=== PATIENT | female | born 2000 | race Two or more races ===

== ENCOUNTER 2022-10-02 23:24 | Emergency (ER) | payer OTHER ==
[~2022-10-02] VITALS: Ht 172.7 cm; Wt 61.2 kg
[2022-10-03] MEDS ORDERED: ZYRTEC10 MG PO (02:42)
[2022-10-03] MEDS ORDERED: ACETAMINOPHEN500 M1 PO (02:42)
[2022-10-03] MEDS ORDERED: INTESTINEX680 M1 PO (02:42)
[2022-10-03] MEDS ORDERED: PEPCID AC20 MG PO (02:42)
[2022-10-03] MEDS ORDERED: OSEL75CA PO (02:42)
[2022-10-03] MEDS ORDERED: ACETAMINOPHEN500 M1 (02:45)
== END 2022-10-03 02:58 | disposition home or self-care (01) ==
LOC: ER 23:24
DX: B34.9 Viral infection, unspecified (principal); Z20.822 Contact with and (suspected) exposure to COVID-19

== ENCOUNTER 2022-10-03 19:18 | Emergency (ER) | payer OTHER ==
[~2022-10-03] VITALS: Ht 172.7 cm; Wt 61.2 kg
[~2022-10-03 19:18] MED LIST: ACETAMINOPHEN500 M1; ACETAMINOPHEN500 M1 PO; INTESTINEX680 M1 PO; OSEL75CA PO; PEPCID AC20 MG PO; ZYRTEC10 MG PO
== END 2022-10-03 21:35 | disposition home or self-care (01) ==
LOC: ER 19:18
DX: L50.9 Urticaria, unspecified (principal); Z91.013 Allergy to seafood; Z91.048 Other nonmedicinal substance allergy status